=== PATIENT | male | born 1980 | race Caucasian/White ===

== ENCOUNTER → 2018-05-14 | Outpatient (REF) | payer OTHER ==
[2018-05-14 17:48] LABS: AMORPHOUS SEDIMENT SMALL (NEGATIVE); APPEARANCE, URINE HAZY (CLEAR); BACTERIA, URINE AUTO NEGATIVE (NEGATIVE); BILIRUBIN, URINE AUTO NEGATIVE (NEGATIVE); BLOOD, URINE BLOOD NEGATIVE (NEGATIVE); COLOR, URINE YELLOW (YELLOW); GLUCOSE, URINE (UA) AUTO NEGATIVE (NEGATIVE); KETONE, URINE AUTO NEGATIVE (NEGATIVE); LEUKOCYTE ESTERASE, URINE AUTO NEGATIVE (NEGATIVE); MUCUS, URINE SMALL (NEGATIVE); NITRITE, URINE AUTO NEGATIVE (NEGATIVE); PROTEIN, URINE AUTO NEGATIVE (NEGATIVE); RBC, URINE AUTO 0 /HPF (0-3); SQUAMOUS EPITHELIAL CELL UR AU 0 /HPF (0-6); UROBILINOGEN, URINE AUTO 0.2 mg/dL (0.0-2.0); WBC, URINE AUTO 0 /HPF (0-3)
== END ==
LOC: M SMT 16:59
DX: R35.0 Frequency of micturition (principal)

== ENCOUNTER → 2018-12-01 | Outpatient (REF) | payer OTHER ==
[2018-12-01 13:44] LABS: APPEARANCE, URINE CLEAR (CLEAR); BACTERIA, URINE AUTO 1+ (NEGATIVE); BILIRUBIN, URINE AUTO NEGATIVE (NEGATIVE); BLOOD, URINE BLOOD NEGATIVE (NEGATIVE); COLOR, URINE YELLOW (YELLOW); GLUCOSE, URINE (UA) AUTO NEGATIVE (NEGATIVE); KETONE, URINE AUTO NEGATIVE (NEGATIVE); LEUKOCYTE ESTERASE, URINE AUTO NEGATIVE (NEGATIVE); MUCUS, URINE SMALL (NEGATIVE); NITRITE, URINE AUTO NEGATIVE (NEGATIVE); PROTEIN, URINE AUTO NEGATIVE (NEGATIVE); RBC, URINE AUTO 3 /HPF (0-3); SPECIFIC GRAVITY URINE AUTO 1.019 (1.002-1.035); SQUAMOUS EPITHELIAL CELL UR AU 0 /HPF (0-6); UROBILINOGEN, URINE AUTO 0.2 mg/dL (0.0-2.0); WBC, URINE AUTO 1 /HPF (0-3)
== END ==
LOC: M SMT 12:41
PROVIDERS: ATTEND Nurse Practitioner Women's Health
DX: R35.0 Frequency of micturition (principal)
CPT/HCPCS: 51798; 81001; 87086; G0463

== ENCOUNTER 2019-02-21 11:31 | Emergency (ER) | payer OTHER ==
[~2019-02-21] VITALS: Ht 177.8 cm; Wt 97.7 kg
[2019-02-21] MEDS ORDERED: DEXTROAMP-AMPHETAMIN PO (11:38)
[2019-02-21] MEDS ORDERED: OMEP40CA2 PO (11:38)
[2019-02-21] MEDS ORDERED: MELO15TA28 PO (11:38)
[2019-02-21] MEDS ORDERED: TAMS1CAP17 PO (11:38)
[2019-02-21] MEDS ORDERED: D 50CAP PO (11:38)
[2019-02-21] MEDS ORDERED: OXYB10TA PO (11:38)
[2019-02-21] MEDS ORDERED: LISI10TA4 PO (11:38)
--- NOTE | 2019-02-21 12:29 | REP ---
Clinical: Right upper quadrant and right flank pain. Technique: Real time cullen scale ultrasound examination using curved array transducer. Findings: Liver demonstrates increased echogenicity suggesting fatty infiltration without focal hepatic lesion identified. The pancreas is incompletely evaluated due to interposed bowel gas but visualized portions appear normal. Gallbladder demonstrates 13 mm gallstone at the neck without wall thickening, pericholecystic fluid, or sonographic Sims's sign. No biliary ductal dilatation is appreciated and the common bile duct measures 3.6 mm diameter. Right kidney is normal in reniform shape with suggestions for extrarenal pelvis and no obvious hydronephrosis. Small nonobstructing intrarenal calculi versus renovascular calcifications cannot be excluded. No perinephric fluid collection. Right kidney measures 12.9 x 6.1 x 6.6 cm. No ascites. Impression: 1. Cholelithiasis without evidence for acute cholecystitis. 2. Hepatic steatosis. 3. Right kidney with extrarenal pelvis and possible nonobstructing intrarenal calculi. Electronically Signed by Vaibhav Peterson MD 02/21/2019 12:21 P
[2019-02-21 12:35] LABS: BASO # 0.1 10^3/uL (0.0-0.2); BASO % 1.1 % (0.0-1.0); EOS # 0.4 10^3/uL (0.0-0.50); EOS % 7.6 % (0.0-3.0); HEMATOCRIT 40.9 % (42.0-52.0); HEMOGLOBIN 14.4 g/dl (13.5-17.5); LYMPH # 1.4 10^3/uL (1.5-4.5); LYMPH % 25.7 % (24.0-44.0); MEAN CORPUSCULAR HEMOGLOBIN 28.8 pg (27.0-33.0); MEAN CORPUSCULAR HGB CONC 35.2 g/dl (32.0-36.5); MEAN CORPUSCULAR VOLUME 81.8 fl (80.0-96.0); MONO # 0.9 10^3/uL (0.0-0.8); MONO % 16.1 % (0.0-5.0); NEUTROPHILS # 2.7 10^3/uL (1.8-7.7); NEUTROPHILS % 49.3 % (36.0-66.0); PLATELET COUNT, AUTOMATED 189 10^3/uL (150-450); WHITE BLOOD COUNT 5.4 10^3/uL (4.0-10.0)
[2019-02-21 13:02] LABS: ALBUMIN 3.8 GM/DL (3.2-5.2); ALT/SGPT 43 U/L (12-78); AMYLASE 42 U/L (25-115); BILIRUBIN,DIRECT 0.1 MG/DL (0.0-0.2); BILIRUBIN,TOTAL 0.5 MG/DL (0.2-1.0); BLOOD UREA NITROGEN 18 MG/DL (7-18); CALCIUM LEVEL 10.5 MG/DL (8.5-10.1); CARBON DIOXIDE LEVEL 28 MEQ/L (21-32); CHLORIDE LEVEL 107 MEQ/L (98-107); CREATININE FOR GFR 0.92 MG/DL (0.70-1.30); GAMMA GLUTAMYLTRANSPEPTIDASE 26 U/L (15-85); GLOMERULAR FILTRATION RATE > 60.0 (>60); GLUCOSE, FASTING 93 MG/DL (70-100); LIPASE 190 U/L (73-393); POTASSIUM SERUM 3.8 MEQ/L (3.5-5.1); SODIUM LEVEL 142 MEQ/L (136-145); TOTAL PROTEIN 7.2 GM/DL (6.4-8.2)
[2019-02-21] MEDS ORDERED: ZOFR4TAB16 PO (13:09)
[2019-02-21 13:13] VITALS: BP 123/74
== END 2019-02-21 13:15 | disposition home or self-care (01) ==
LOC: M ED 11:31
DX: K80.51 Calculus of bile duct without cholangitis or cholecystitis with obstruction (principal); I10 Essential (primary) hypertension; K21.9 Gastro-esophageal reflux disease without esophagitis; F90.9 Attention-deficit hyperactivity disorder, unspecified type; N40.0 Benign prostatic hyperplasia without lower urinary tract symptoms; K76.0 Fatty (change of) liver, not elsewhere classified; Z79.899 Other long term (current) drug therapy